=== PATIENT | female | born 1980 | race African-American/Black ===

== ENCOUNTER 2017-01-08 10:47 | Inpatient (IN) | payer BC, OTHER ==
[~2017-01-08] VITALS: Ht 167.6 cm; Wt 79.1 kg
[~2017-01-08 10:47] MED LIST: DENIES; PREN1TAB49
[2017-01-08 11:49] VITALS: Ht 167.6 cm; Wt 79.1 kg
[2017-01-08 11:52] VITALS: BP 112/60; PULSE 81; RESP 18
[2017-01-08 12:42] LABS: ADD UMIC YES; URINE BILIRUBIN (Dip) NEGATIVE (NEGATIVE); URINE BLOOD (Dip) 3+ (NEGATIVE); URINE COLOR LT. YELLOW (YELLOW); URINE GLUCOSE (Dip) NEGATIVE (NEGATIVE); URINE KETONES (Dip) NEGATIVE (NEGATIVE); URINE LEUKOCYTE ESTERASE (Dip) NEGATIVE (NEGATIVE); URINE NITRITE (Dip) NEGATIVE (NEGATIVE); URINE TOTAL PROTEIN (Dip) NEGATIVE (NEGATIVE); URINE UROBILINOGEN (Dip) 0.2 E.U./dL (0.1-1.0)
--- NOTE | 2017-01-08 12:58 | RADRPT ---
PROCEDURE: US OB biophysical profile. Ultrasound cervix CLINICAL INDICATION: decreased movements, labor TECHNIQUE: Multiple sonographic images of the pelvis were obtained. The images were reviewed on a PACS workstation. In addition transvaginal images of the cervix were obtained. COMPARISON: No prior studies are available for comparison. FINDINGS: There is a single viable intrauterine gestation. Cardiac activity is present with 126 beats per min redding. There is a vertex presentation. The placenta is anterior. There is no evidence of placental abruption. There is a normal amount of amniotic fluid with an JACK = 12.9 cm. The cervix is closed and measures 4.5 cm in length. Biophysical profile: movement 2/2 tone 2/2. breathing 2/2 JACK 2/2 Total 05/20 RPTAT: AA . IMPRESSION: Normal biophysical profile. Cervix is closed and measures 4.5 cm in length. . .Jonas Alejo MD, MD Date Time Electronically viewed and signed by .Jonas Alejo MD, MD on 01/08/2017 12:58 .S/
[2017-01-08 13:03] LABS: BACTERIA,URINE FEW; SQUAMOUS EPITHELIAL CELL,UR MODERATE; URINE RBCS 0-2 /HPF (0)
[2017-01-08 13:09] LABS: ADD SCAN DIFF NO
[2017-01-08 13:12] LABS: BASOPHILS % 0.3 % (0.0-2.0); EOSINOPHILS # 0.1 10^3/ul (0.0-0.5); EOSINOPHILS % 1.1 % (0.0-7.0); HEMATOCRIT 35.2 % (37.0-47.0); HEMOGLOBIN 11.5 g/dl (12.0-16.0); LYMPHOCYTES # 1.2 10^3/ul (0.8-2.9); LYMPHOCYTES % 16.2 % (15.0-51.0); MEAN CORPUSCULAR HEMOGLOBIN 30.5 pg (29.0-33.0); MEAN CORPUSCULAR HGB CONC 32.7 g/dl (32.0-37.0); MEAN CORPUSCULAR VOLUME 93.4 fl (82.0-101.0); MEAN PLATELET VOLUME 10.8 fl (7.4-10.4); MONOCYTE # 0.6 10^3/ul (0.3-0.9); MONOCYTES % 8.3 % (0.0-11.0); NEUTROPHIL # 5.5 10^3/ul (1.6-7.5); NEUTROPHILS % 73.7 % (39.0-77.0); PLATELET COUNT 162 10^3/UL (140-415); RED BLOOD COUNT 3.77 10^6/ul (4.20-5.40); RED CELL DISTRIBUTION WIDTH 14.4 % (11.5-14.5); WHITE BLOOD COUNT 7.4 10^3/ul (4.8-10.8)
[2017-01-08] MEDS: BETAMET NA PHOS/AC(6 MG/ML) 5ML INJ IM SCH (14:58)
[2017-01-08] MEDS: LACTATED RINGER'S 1,000 ML IV SCH ×2 (14:58→22:59)
--- NOTE | 2017-01-08 16:44 | RADRPT ---
PROCEDURE: US OB. CLINICAL INDICATION: Size and dates , vaginal bleeding TECHNIQUE: Multiple sonographic images of the pelvis and gravid uterus were obtained. The images were reviewed on a PACS workstation. COMPARISON: No prior studies are available for comparison. FINDINGS: There is a single viable intrauterine gestation. Cardiac activity is present with 144 beats per min leanne. There is a vertex presentation. The placenta is anterior. There is no evidence for an abruption or placenta previa. There is a normal amount of amniotic fluid with an JACK = 12.9 cm. Measurements were made in order to determine age. The results are as follows: BPD =8.0 cm HC =29.1 cm AC =27.9 cm FL =6.2 cm Estimated gestational age of approximately 32 weeks and 1 day based on ultrasound measurements. Clinical age: 29 weeks and 3 days. The estimated date of delivery is 03/04/17, based on ultrasound measurements. The EFW = 1895 g, >97%, based on LMP age. RPTAT: AA IMPRESSION: Single viable intrauterine gestation of approximately 32 weeks and 1 day based on ultrasound measur ements. Larger than clinical age by approximately 3 weeks. .Jonas Alejo MD, MD Date Time Electronically viewed and signed by .Jonas Alejo MD, on 01/08/2017 16:44 .S/
--- NOTE | 2017-01-08 17:55 | HP ---
Date/Time of Note Date/Time of Note DATE: 01/08/17 TIME: 17:47 OB - History Hx of Present Free Text/Dictation 36-year-old G 11 P5 with IUP at 29 weeks and 3 days with care in [facility] presented today with complaint of worsening of vaginal bleeding and passing large clots 2 days ago. Patient antepartum course was complicated by marginal placenta previa at the beginning of . She had spotting. She has continued to have brownish vaginal discharge throughout the until 2 days ago when she passed a large red blood clot to the size of the palm. She presented today to triage for further evaluation. She denies any uterine contractions, leakage of fluid or decreased movement or any abdominal pain. Patient reports that bleeding occurred when she was walking and she denied any pain prior to passing blood clots. She currently lives in [facility] however she decided to wait until she come to [facility] for evaluation since she will have delivery at [facility] she is currently under care of Dr. Rose. records reviewed. There was evidence of marginal previa earlier . She had a repeat ultrasound today that did not show evidence of placenta previa or abruption. Amniotic fluid index: 12.9 and cervical length 4.5 cm. She had a reactive NST and there is no contraction seen on the monitor. Chief Complaint: Vaginal bleeding, at 29 weeks and 3 days : 11 Para: 4 Spontaneous : 1 Therapeutic : 6 Care: Limited Care Past Family/Social History * Past Medical, Surgical, Family and Obstetric Histories reviewed from chart. OB Admission Exam Vital Signs Vital Signs Vital Signs Date Time Temp Pulse Resp B/P Pulse Ox O2 Delivery O2 Flow Rate FiO2 01/08/17 11:52 98.3 81 18 112/60 100 Room Air Physical Exam HEENT: WNL Heart: Rhythm Normal Lungs: Clear Abdomen: WNL Extremities: Normal Reflexes: Normal Cervical Dilatation: None (On the speculum examination there is brownish vaginal discharge. There is no evidence of active bleeding or there is no red blood in the vaginal vault. Cervix appears to be closed and long.) Effacement: 0% Station: -3 Membranes: Intact Heart Rate: 120's Accelerations: Accelerations Present Decelerations: No Decelerations Varibility: Absent Contractions on Admission: None Intensity: Mild Last 72 hours Lab Results CBC & BMP 01/08/17 12:48 OB Assessment/Plan Other Assessment: IUP at 29 weeks and 3 days History of marginal placenta previa Vaginal bleeding Repeat ultrasound showed resolution of placenta previa. Currently no clinical evidence of abruption. Ultrasound is unremarkable. Cannot rule out marginal separation of placenta. Patient denied having any recent intercourse. Patient will be admitted to antepartum for observation next I have discussed with the patient regarding receiving steriods, since risk of marginal separation of placenta, risk for earlier delivery, labor and placenta abruption cannot be completely ruled out. Patient agreed to this plan Plan: Expectant Management Other plan: Patient will be admitted to antepartum service We will start steroid Continue monitoring I do not see any uterine contractions. at this point does not need tocolysis If started having contractions would consider it Neonatology/ perinatology consultation Bedrest Expectant management MAXX GALLEGOS MD Jan 08, 2017 17:55
[2017-01-08] MEDS ORDERED: ZOLPIDEM 5 MG TAB PO PRN (21:30)
[2017-01-08] MEDS ORDERED: DIPHENHYDRAMINE 25 MG CAP PO ONE (21:30)
[2017-01-09] MEDS: LACTATED RINGER'S 1,000 ML IV SCH ×2 (08:36→13:56)
[2017-01-09] MEDS ORDERED: MULTIVIT/MIN/FOLATE/IRON/PREN TAB PO SCH (09:00)
[2017-01-09] MEDS ORDERED: FERROUS SULFATE (EC) 325 MG TAB PO SCH (09:00)
[2017-01-09] MEDS: BETAMET NA PHOS/AC(6 MG/ML) 5ML INJ IM SCH (14:40)
--- NOTE | 2017-01-09 15:04 | CONS ---
DATE OF ADMISSION: 01/08/2017 DATE OF CONSULTATION: 01/09/2017 TYPE TIME OF CONSULTATION: NICU consultation. HISTORY OF PRESENT ILLNESS: I was asked to perform a consultation for Tarik Rodriguez who was admitted to [facility] on 01/08/2017 at estimated gestational age of 29 and 3/7 weeks with onset of vaginal bleeding. She has been placed on betamethasone for augmentation of lung maturity. I spoke at length with mom regarding complications associated with delivery at this gestational age. Discussed survival data. Discussed morbidities including but not limited to risk of respiratory distress syndrome requiring chronic ventilator/oxygen use. Discussed risk other morbidities including, but not limited to, apnea of prematurity, sepsis, necrotizing enterocolitis, as well as possible intraventricular hemorrhage. Discussed risk of future neurodevelopmental delay including, but not limited to, attention deficit disorder, autism, cerebral palsy, as well as higher rates of learning disabilities in infants. Discussed provision of breast milk for prevention of of the above-mentioned morbidities. Thank you for allowing me to participate in the care of this patient. Should any further questions arise, please do not hesitate to contact me. Dictated By: GLENN LAKE MD, AM/ISABELLA Conf#: [id number] DID#: [id number] ROXANNE
--- NOTE | 2017-01-09 15:22 | CONS ---
DATE OF ADMISSION: 01/08/2017 DATE OF CONSULTATION: 01/09/2017 HISTORY OF PRESENT ILLNESS: The patient is a 36-year-old who presented yesterday evening with compl aint of some vaginal bleeding. Transvaginal cervical length was normal and there is no evidence of previa. Since then, she has had no vaginal bleeding. She was given betamethasone with the second d ose due this evening. RECOMMENDATIONS: If there is no evidence of vaginal bleeding overnight, please have the patient walk for about 2 rounds in the unit and if there is any evidence of heavy vaginal bleeding, she can be d ischarged home with bleeding precautions. Dictated By: JAVON WISEMAN/NTS Conf#: [id number] DID#: [id number]
--- NOTE | 2017-01-09 15:33 | QN ---
Documentation Comment doing well vss tracing category 1 no vaginal bleeding. d/c home today f/u in clinic RAYMON MANUEL MD Jan 09, 2017 15:33
--- NOTE | 2017-01-09 15:34 | PD.PPDC ---
WHITE WASHER Discharge Instruction Condition Patient Condition: Good Diet Diet: Resume Regular Diet Activity/Restrictions Activity: Normal Activity May Shower Restrictions: No Exercising No Lifting No Driving No Sexual Activity Nothing in the Vagina No [place] No Tampons, douche Wound/Drain Care Instructions Wound/Drain Care Instructions: Wash with soap and water Keep clean and dry Follow-up Follow-up with Physician: Week/Weeks Return to clinic for LINE TESTER Instructions: Fever greater than 101 Chills Worsening abdominal pain Excessive Vaginal Bleeding More than 2 pads per hour Unable to tolerate diet OB Instructions: Breast Tenderness Depression Blurried Vision Headache Surgical Instructions: Incisional Drainage Incisional Redness RAYMON MANUEL MD Jan 09, 2017 15:34
== END 2017-01-09 18:00 | disposition home or self-care (01) | DRG 782 ==
LOC: OBT 10:47 → L-D 10:48 → OBT 14:00 → OBG 14:00
PROVIDERS: ADMIT Obstetrics & Gynecology; ATTEND Obstetrics & Gynecology
DX: O46.93 Antepartum hemorrhage, unspecified, third trimester (principal); O09.523 Supervision of elderly multigravida, third trimester; Z3A.29 29 weeks gestation of pregnancy
CPT/HCPCS: 36415; 76815; 76817; 76818; 81001; 81003; 85025; 86850; 86900; 86901; G0463; J0702; J7120

== ENCOUNTER 2017-02-16 05:05 | Outpatient (CLI) | payer OTHER ==
[~2017-02-16] VITALS: Ht 167.6 cm; Wt 80.4 kg
[~2017-02-16 05:05] MED LIST changes: -DENIES
[2017-02-16 05:28] VITALS: Ht 167.6 cm; Wt 80.4 kg
[2017-02-16 05:29] VITALS: BP 111/62; PULSE 79; RESP 18
[2017-02-16] MEDS ORDERED: TERBUTALINE 1 MG/ML INJ SC ONE (06:30)
[2017-02-16] MEDS ORDERED: TERBUTALINE 1 MG/ML INJ SC PRN (07:00)
[2017-02-16 07:41] LABS: ADD UMIC YES; URINE BILIRUBIN (Dip) NEGATIVE (NEGATIVE); URINE BLOOD (Dip) 3+ (NEGATIVE); URINE COLOR LT. YELLOW (YELLOW); URINE GLUCOSE (Dip) NEGATIVE (NEGATIVE); URINE KETONES (Dip) NEGATIVE (NEGATIVE); URINE LEUKOCYTE ESTERASE (Dip) NEGATIVE (NEGATIVE); URINE NITRITE (Dip) NEGATIVE (NEGATIVE); URINE TOTAL PROTEIN (Dip) NEGATIVE (NEGATIVE); URINE UROBILINOGEN (Dip) 0.2 E.U./dL (0.1-1.0)
--- NOTE | 2017-02-16 08:17 | TRIAGE ---
OB Triage Datetime Report Generated by CPN: 02/16/2017 08:16 Datetime: 02/16/2017 08:09 Pattern: Normal: <= 5 Contractions in 10 Minutes Contraction Comments: no uc Heart Rate FHR Baseline Rate: 145 Monitor Mode: External US Variability: Moderate 6-25 bpm Accelerations: 15X15 Decelerations: None Category: Category I Pain Presence: None/Denies Pain Type: N/A Vaginal Bleeding: Scant Datetime: 02/16/2017 07:00 Stage of : OB Triage Labor Evaluation Frequency: 2-8 Monitor Mode: External Duration (sec)2399: 50-90 Quality: Moderate Pattern: Normal: <= 5 Contractions in [address] [facility]: Relaxed Heart Rate FHR Baseline Rate: 140 Monitor Mode: External US Variability: Moderate 6-25 bpm Accelerations: 15X15 Decelerations: None Category: Category I Pain Presence: None/Denies Datetime: 02/16/2017 06:10 Vaginal Exam Dilatation (cms): 0.0 Effacement (%): 0 Station: -4 Exam By: AURE Vaginal Bleeding: Scant Cervix, Consistency: Moderate Cervix, Position: Posterior Datetime: 02/16/2017 06:00 Stage of : OB Triage Temperature Route: Oral Labor Evaluation Frequency: 1-12 Monitor Mode: External Duration (sec)2399: 60-180 Quality: Moderate Pattern: Normal: <= 5 Contractions in [address] [facility]: Relaxed Heart Rate FHR Baseline Rate: 135 Monitor Mode: External US Variability: Moderate 6-25 bpm Accelerations: 15X15 Decelerations: None Category: Category I Pain Presence: None/Denies Datetime: 02/16/2017 05:26 Assessment Type: Triage Maternal Assessment Level of Consciousness: Fully Conscious DTR's/Clonus: DTRs 2+; No Clonus Headache: Denies Blurred Vision: No Respiratory Effort: Unlabored; Regular Rhythm; Equal Expansion Breath Sounds, Left: Clear and Equal Breath Sounds, Right: Clear and Equal Nausea/Vomiting: Denies RUQ Epigastric Pain: Denies Lower Extremities Edema: None Degree: None Facial Edema: None Fall Risk Assessment History of Falling: (0) No Secondary Diagnosis: (0) No Ambulatory Aid: (0) Bedrest/Nurse Assist IV Therapy: (0) No Gait: (0) Normal/Bedrest/Immobile Mental Status: (0) Oriented to Own Ability Fall Score: 0 Fall Risk Score Definition: No Risk: No action required Datetime: 02/16/2017 05:21 Time of Arrival: 02/16/2017 05:03 EGA: 35.0 Arrived By: Wheelchair Arrived From: Home Chief Complaint: BLEDING X DAYS DARK BROWM RED BLEEDING TODAY SINCE 829 Movement: Present Contractions: Occasional Time Contractions Began: 02/16/2017 05:00 Rupture of Membranes: Denies Recent Sexual Intercouse: Denies Additional Patient Complaints: PER PT. ONE PANTILINER WAS SOAKED Time Provider Notified: 02/16/2017 06:05 Provider Notified: SWEETIE Initial Plan: EFM, ASSESSMENT, CALL MD FOR ORDERS Datetime: 01/09/2017 17:39 Monitor Mode: EATING HER DINNER , ON THE WAY TO PICK HER UP Datetime: 01/09/2017 17:00 Labor Evaluation Frequency: 0 Monitor Mode: External Resting Tone [facility]: Relaxed Heart Rate FHR Baseline Rate: 140 Monitor Mode: External US FHR Baseline Changes: No Baseline Change Variability: Moderate 6-25 bpm Accelerations: 15X15 Decelerations: None Category: Category I Datetime: 01/09/2017 16:48 Stage of : Antepartum Temperature Route: Oral Pain Presence: None/Denies Pain Goal: 0 Datetime: 01/09/2017 16:46 Labor Evaluation Frequency: 0 Monitor Mode: External Resting Tone [facility]: Relaxed Heart Rate FHR Baseline Rate: 140 Monitor Mode: External US FHR Baseline Changes: No Baseline Change Variability: Moderate 6-25 bpm Accelerations: 15X15 Decelerations: None Category: Category I Datetime: 01/09/2017 16:00 Monitor Mode: External Resting Tone [facility]: Relaxed Heart Rate FHR Baseline Rate: 140 Monitor Mode: External US FHR Baseline Changes: No Baseline Change Variability: Moderate 6-25 bpm Accelerations: 15X15 Decelerations: None Category: Category I Datetime: 01/09/2017 15:00 Labor Evaluation Frequency: 0 Monitor Mode: External Resting Tone [facility]: Relaxed Heart Rate FHR Baseline Rate: 140 Monitor Mode: External US FHR Baseline Changes: No Baseline Change Variability: Moderate 6-25 bpm Accelerations: 15X15 Decelerations: None Category: Category I Datetime: 01/09/2017 13:53 Labor Evaluation Frequency: 0 Monitor Mode: External Resting Tone [facility]: Relaxed Heart Rate FHR Baseline Rate: 140 Monitor Mode: External US FHR Baseline Changes: No Baseline Change Variability: Moderate 6-25 bpm Accelerations: 10X10 Decelerations: None Category: Category I Datetime: 01/09/2017 12:53 Labor Evaluation Frequency: 0 Monitor Mode: External Resting Tone [facility]: Relaxed Heart Rate FHR Baseline Rate: 140 Monitor Mode: External US FHR Baseline Changes: No Baseline Change Variability: Moderate 6-25 bpm Accelerations: 10X10 Decelerations: None Category: Category I Datetime: 01/09/2017 12:47 Stage of : Antepartum Datetime: 01/09/2017 12:00 Labor Evaluation Frequency: 0 Monitor Mode: External Resting Tone [facility]: Relaxed Heart Rate FHR Baseline Rate: 140 Monitor Mode: External US FHR Baseline Changes: No Baseline Change Variability: Moderate 6-25 bpm Accelerations: 10X10 Decelerations: None Category: Category I Datetime: 01/09/2017 11:56 Stage of : Antepartum Datetime: 01/09/2017 11:36 Stage of : Antepartum Temperature Route: Oral Pain Assessment Pain Scale: 3 Pain Presence: Chronic Pain Location: Back Pain Goal: 0 Pain Relief Measures: Comfort Measures Datetime: 01/09/2017 11:30 Stage of : Antepartum Datetime: 01/09/2017 10:45 Labor Evaluation Frequency: 0 Monitor Mode: External Pattern: Normal: <= 5 Contractions in 10 Minutes Heart Rate FHR Baseline Rate: 145 Monitor Mode: External US FHR Baseline Changes: No Baseline Change Variability: Moderate 6-25 bpm Accelerations: 10X10 Decelerations: None Category: Category I Datetime: 01/09/2017 09:30 Stage of : Antepartum Labor Evaluation Frequency: x4/hr Monitor Mode: External Quality: Mild Heart Rate FHR Baseline Rate: 140 Monitor Mode: External US FHR Baseline Changes: No Baseline Change Variability: Moderate 6-25 bpm Accelerations: 15X15 Decelerations: Variable (Annotations: x2) Category: Category I Datetime: 01/09/2017 08:50 Labor Evaluation Frequency: 0 Monitor Mode: External Pattern: Normal: <= 5 Contractions in 10 Minutes Heart Rate FHR Baseline Rate: 140 Monitor Mode: External US FHR Baseline Changes: No Baseline Change Variability: Moderate 6-25 bpm Accelerations: 15X15 Decelerations: None Category: Category I Datetime: 01/09/2017 08:45 Assessment Type: Ongoing Assessment Maternal Assessment Level of Consciousness: Fully Conscious DTR's/Clonus: DTRs 2+; No Clonus Headache: Denies Blurred Vision: No Respiratory Effort: Unlabored; Regular Rhythm; Equal Expansion Breath Sounds, Left: Clear and Equal Breath Sounds, Right: Clear and Equal Nausea/Vomiting: Denies RUQ Epigastric Pain: Denies Lower Extremities Edema: None Degree: None Upper Extremities Edema: None Degree: None Facial Edema: None Fall Risk Assessment History of Falling: (0) No Secondary Diagnosis: (0) No Ambulatory Aid: (0) Bedrest/Nurse Assist IV Therapy: (20) Yes Gait: (0) Normal/Bedrest/Immobile Mental Status: (0) Oriented to Own Ability Fall Score: 20 Fall Risk Score Definition: No Risk: No action required Datetime: 01/09/2017 07:00 Labor Evaluation Frequency: x1 Monitor Mode: External Duration (sec)2399: [address] [facility]: Relaxed Heart Rate FHR Baseline Rate: 135 Monitor Mode: External US Variability: Moderate 6-25 bpm Accelerations: 15X15 Decelerations: Variable Datetime: 01/09/2017 06:44 Monitor Mode: Palpation Pain Assessment Pain Scale: 0 Pain Presence: None/Denies Pain Type: N/A Datetime: 01/09/2017 06:33 Pain Assessment Comments: unable to assess, pt asleep Datetime: 01/09/2017 06:30 Labor Evaluation Frequency: no contractions noted at this time Monitor Mode: External Resting Tone [facility]: Relaxed Heart Rate FHR Baseline Rate: 135 Monitor Mode: External US Variability: Moderate 6-25 bpm Accelerations: 15X15 Datetime: 01/09/2017 05:30 Labor Evaluation Frequency: none noted at this time Monitor Mode: External Resting T[facility]: Relaxed Heart Rate FHR Baseline Rate: 135 Monitor Mode: External US Variability: Moderate 6-25 bpm Accelerations: 15X15 Datetime: 01/09/2017 04:30 Labor Evaluation Frequency: NONE NOTED AT THIS TIME Monitor Mode: External Resting Tone [facility]: Relaxed Heart Rate FHR Baseline Rate: 145 Monitor Mode: External US Variability: Moderate 6-25 bpm Accelerations: 15X15 Datetime: 01/09/2017 04:17 Pain Assessment Comments: UNABLE TO ASSESS, PT ASLEEP Datetime: 01/09/2017 03:30 Labor Evaluation Frequency: none noted at this time Monitor Mode: External Resting Tone [facility]: Relaxed Heart Rate FHR Baseline Rate: 140 Monitor Mode: External US Variability: Moderate 6-25 bpm Accelerations: 15X15 Decelerations: None Category: Category I Datetime: 01/09/2017 02:59 Temperature Route: Oral Monitor Mode: Palpation Contraction Comments: no contractions palpated at this time Pain Assessment Pain Scale: 0 Pain Presence: None/Denies Pain Type: N/A Datetime: 01/09/2017 02:41 Stage of : Antepartum Contraction Comments: NO CONTRACTIONS PALPATED AT THIS TIME. ABDOMEN SOFT ON PALPATION Pain Assessment Pain Scale: 0 Pain Presence: None/Denies Pain Type: N/A Datetime: 01/09/2017 02:30 Labor Evaluation Frequency: NONE NOTED AT THIS TIME Monitor Mode: External Resting Tone [facility]: Relaxed Heart Rate FHR Baseline Rate: 140 Monitor Mode: External US Variability: Minimal - Undetectable to <=5 bpm Accelerations: 15X15 Datetime: 01/09/2017 01:30 Labor Evaluation Frequency: none noted at this time Monitor Mode: External Heart Rate FHR Baseline Rate: 145 Monitor Mode: External US Variability: Moderate 6-25 bpm Accelerations: 15X15 Decelerations: None Category: Category I Datetime: 01/09/2017 01:16 Pain Assessment Comments: unable to assess, pt asleep Datetime: 01/09/2017 00:19 Labor Evaluation Frequency: none noted at this time Monitor Mode: External Resting Tone [facility]: Relaxed Heart Rate FHR Baseline Rate: 145 Monitor Mode: External US Variability: Moderate 6-25 bpm Accelerations: 15X15 Datetime: 01/08/2017 23:38 Stage of : Antepartum Temperature Route: Oral Datetime: 01/08/2017 23:36 Monitor Mode: Palpation Contraction Comments: no contractions palpated at this time. abdomen soft on palpation Datetime: 01/08/2017 23:30 Labor Evaluation Frequency: NONE NOTED AT THIS TIME Monitor Mode: External Resting Tone [facility]: Relaxed Heart Rate FHR Baseline Rate: 135 Variability: Moderate 6-25 bpm Accelerations: 15X15 Comments: LOSS OF FHT PERIODICALLY Datetime: 01/08/2017 23:15 Monitor Mode: Palpation Contraction Comments: no contractions palpated, abdomen soft on palpation Monitor Mode: External US Pain Assessment Pain Scale: 0 Pain Presence: None/Denies Pain Type: N/A Datetime: 01/08/2017 22:30 Labor Evaluation Frequency: none noted at this time Monitor Mode: External Resting T[facility]: Relaxed Heart Rate FHR Baseline Rate: 135 Monitor Mode: External US Variability: Moderate 6-25 bpm Accelerations: 15X15 Decelerations: None Category: Category I Datetime: 01/08/2017 21:42 Pain Assessment Pain Scale: 0 Pain Presence: None/Denies Pain Type: N/A Datetime: 01/08/2017 21:30 Labor Evaluation Frequency: NONE NOTED AT THIS TIME Monitor Mode: External Resting Tone [facility]: Relaxed Heart Rate FHR Baseline Rate: 135 Variability: Moderate 6-25 bpm Accelerations: 15X15 Decelerations: None Category: Category I Datetime: 01/08/2017 20:30 Labor Evaluation Frequency: NONE NOTED AT THIS TIME Monitor Mode: External Resting Tone [facility]: Relaxed Heart Rate FHR Baseline Rate: 135 Monitor Mode: External US Variability: Moderate 6-25 bpm Accelerations: 15X15 Decelerations: None Category: Category I Datetime: 01/08/2017 19:51 Monitor Mode: Palpation Quality: Mild (Annotations: ABDOMEN SOFT ON PALPATION, NO CONTRACTIONS PALPATED) Monitor Mode: External US Datetime: 01/08/2017 19:41 Stage of : Antepartum Assessment Type: Ongoing Assessment Maternal Assessment Level of Consciousness: Fully Conscious DTR's/Clonus: DTRs 2+; No Clonus Headache: Denies Blurred Vision: No Respiratory Effort: Unlabored; Regular Rhythm; Equal Expansion Breath Sounds, Left: Clear and Equal Breath Sounds, Right: Clear and Equal Nausea/Vomiting: Denies RUQ Epigastric Pain: Denies Lower Extremities Edema: None Degree: None Upper Extremities Edema: None Degree: None Facial Edema: None Temperature Route: Oral Fall Risk Assessment History of Falling: (0) No Secondary Diagnosis: (0) No Ambulatory Aid: (0) Bedrest/Nurse Assist IV Therapy: (20) Yes Gait: (0) Normal/Bedrest/Immobile Mental Status: (0) Oriented to Own Ability Fall Score: 20 Fall Risk Score Definition: No Risk: No action required Labor Evaluation Frequency: NONE NOTED AT THIS TIME Monitor Mode: External Resting Tone [facility]: Relaxed Heart Rate FHR Baseline Rate: 135 (Annotations: LOSS OF CONTACT PERIODICALLY D/T MATERNAL POSITIONING AND FET AL ACTIVITY ) Monitor Mode: External US Variability: Moderate 6-25 bpm Accelerations: 15X15 Decelerations: None Category: Category I Pain Assessment Pain Scale: 0 Pain Presence: None/Denies Pain Type: N/A Datetime: 01/08/2017 18:38 Stage of : Antepartum Maternal Assessment Level of Consciousness: Fully Conscious Headache: Denies Blurred Vision: No Respiratory Effort: Unlabored Nausea/Vomiting: Denies RUQ Epigastric Pain: Denies Labor Evaluation Frequency: 0/hr Monitor Mode: External Heart Rate FHR Baseline Rate: 145 Monitor Mode: External US Variability: Moderate 6-25 bpm Accelerations: 10X10 Decelerations: None Pain Assessment Pain Scale: 0 Pain Presence: None/Denies Membrane Status: Intact Vaginal Bleeding: not at this time Datetime: 01/08/2017 18:08 Maternal Assessment Level of Consciousness: Fully Conscious Headache: Denies Blurred Vision: No Respiratory Effort: Unlabored Nausea/Vomiting: Denies Pain Presence: None/Denies Datetime: 01/08/2017 17:26 Stage of : Antepartum Maternal Assessment Level of Consciousness: Fully Conscious Headache: Denies Nausea/Vomiting: Denies RUQ Epigastric Pain: Denies Labor Evaluation Frequency: 0/hr Monitor Mode: External Heart Rate FHR Baseline Rate: 145 Monitor Mode: External US Variability: Moderate 6-25 bpm Accelerations: 10X10 Decelerations: None Comments: ega 29.3 Pain Assessment Pain Scale: 0 Pain Presence: None/Denies Membrane Status: Intact Vaginal Bleeding: not at this time Datetime: 01/08/2017 15:51 Heart Rate FHR Baseline Rate: 145 Variability: Moderate 6-25 bpm Accelerations: 10X10 Decelerations: None Comments: ega 29.3 Datetime: 01/08/2017 15:46 Assessment Type: Admission Assessment Vaginal Bleeding: Small (Annotations: sterile spec done by dr. chance in triage and noted brownis h d/ci n vagina. pt. states she passed a clot about the size "of a big orange" x2 days ago. pt. hx. of bleeding and brownish d/c throughout ) Maternal Assessment Level of Consciousness: Fully Conscious DTR's/Clonus: DTRs 2+; No Clonus Headache: Denies Blurred Vision: No Respiratory Effort: Unlabored; Regular Rhythm; Equal Expansion Breath Sounds, Left: Clear and Equal Breath Sounds, Right: Clear and Equal Nausea/Vomiting: Denies RUQ Epigastric Pain: Denies Lower Extremities Edema: None Upper Extremities Edema: None Facial Edema: None Fall Risk Assessment History of Falling: (0) No Secondary Diagnosis: (0) No Ambulatory Aid: (0) Bedrest/Nurse Assist IV Therapy: (20) Yes Gait: (0) Normal/Bedrest/Immobile Mental Status: (0) Oriented to Own Ability Fall Score: 20 Fall Risk Score Definition: No Risk: No action required Pain Assessment Pain Scale: 0 Pain Presence: None/Denies Pain Type: N/A Membrane Status: Intact Datetime: 01/08/2017 13:29 Labor Evaluation Frequency: 0 Monitor Mode: External Duration (sec)2399: [address] [facility]: Relaxed Heart Rate FHR Baseline Rate: 125 Monitor Mode: External US FHR Baseline Changes: No Baseline Change Variability: Moderate 6-25 bpm Accelerations: 15X15 Decelerations: None Category: Category I Datetime: 01/08/2017 12:15 Labor Evaluation Frequency: 0 Monitor Mode: External Duration (sec)2399: [address] [facility]: Relaxed Heart Rate FHR Baseline Rate: 135 Monitor Mode: External US FHR Baseline Changes: No Baseline Change Variability: Moderate 6-25 bpm Accelerations: 15X15 Decelerations: None Category: Category I Membrane Status: Intact Datetime: 01/08/2017 11:47 Labor Evaluation Frequency: 0 Monitor Mode: External Duration (sec)2399: [address] [facility]: Relaxed Heart Rate FHR Baseline Rate: 135 Monitor Mode: External US FHR Baseline Changes: No Baseline Change Variability: Moderate 6-25 bpm Accelerations: 15X15 Decelerations: None Category: Category I Datetime: 01/08/2017 11:39 Time of Arrival: 01/08/2017 15:10 EGA: 29.3 Arrived By: Wheelchair Arrived From: Other Unit in Hospital Datetime: 01/08/2017 11:21 Labor Evaluation Frequency: 0 Monitor Mode: External Duration (sec)2399: [address] [facility]: Relaxed Heart Rate FHR Baseline Rate: 145 Monitor Mode: External US FHR Baseline Changes: No Baseline Change Variability: Moderate 6-25 bpm Accelerations: 15X15 Decelerations: None Category: Category I Datetime: 01/08/2017 11:11 Time of Arrival: 01/08/2017 10:31 EGA: 38.1 Arrived By: Ambulatory Arrived From: Home Chief Complaint: R/O PLACENTA PREVIA Movement: Present Contractions: Denies/Absent Rupture of Membranes: Denies Vaginal Bleeding: Small Vaginal Discharge: Denies Recent Sexual Intercouse: Denies Abdominal Trauma: Not Applicable Patient Complaints: Cramping; Back Pain Time Provider Notified: 01/08/2017 11:15 Provider Notified: MAR Datetime: 01/08/2017 11:07 Stage of : OB Triage Maternal Assessment Level of Consciousness: Fully Conscious DTR's/Clonus: DTRs 2+; No Clonus Headache: Denies Blurred Vision: No Respiratory Effort: Unlabored Breath Sounds, Left: Clear and Equal Breath Sounds, Right: Clear and Equal Nausea/Vomiting: Denies RUQ Epigastric Pain: Denies Facial Edema: None Labor Evaluation Frequency: 0 Monitor Mode: External Duration (sec)2399: [address] [facility]: Relaxed Heart Rate FHR Baseline Rate: 135 Monitor Mode: External US FHR Baseline Changes: No Baseline Change Variability: Moderate 6-25 bpm Accelerations: 15X15 Decelerations: None Category: Category I Pain Assessment Pain Scale: 3 Pain Presence: Intermittent Pain Type: Contraction Pain Location: Abdomen Pain Goal: 10 Pain Relief Measures: Comfort Measures Pain Assessment Comments: LIGAMENT PAIN Membrane Status: Intact
--- NOTE | 2017-02-16 17:36 | QN ---
Documentation Comment iup 35 weeks co of spottin vss exam wnl cat I tracing us wnl ua neg a/p iup 35 weeks false labor dc home ISABELLE ARMENDARIZ MD February 16, 2017 17:36
== END 2017-02-16 08:29 | disposition home or self-care (01) ==
LOC: OBT 05:05 → L-D 05:05 → OBT 08:29
PROVIDERS: ATTEND Obstetrics & Gynecology
DX: O47.03 False labor before 37 completed weeks of gestation, third trimester (principal); O26.853 Spotting complicating pregnancy, third trimester; Z3A.35 35 weeks gestation of pregnancy
CPT/HCPCS: 81001; 96372; J3105; Z7500; 81003; G0463

== ENCOUNTER 2017-03-03 13:20 | Inpatient (IN) | payer OTHER ==
[~2017-03-03] VITALS: Ht 170.2 cm; Wt 82.0 kg
[2017-03-03 13:34] VITALS: RESP 19; Ht 170.2 cm; Wt 82.0 kg
[2017-03-03] MEDS ORDERED: LACTATED RINGER'S 1,000 ML IV SCH (14:03)
[2017-03-03] MEDS ORDERED: LACTATED RINGER'S 1,000 ML IV PRN (14:03)
[2017-03-03 14:09] LABS: ADD SCAN DIFF NO
[2017-03-03 14:11] LABS: BASOPHILS % 0.1 % (0.0-2.0); EOSINOPHILS # 0.1 10^3/ul (0.0-0.5); EOSINOPHILS % 0.9 % (0.0-7.0); HEMATOCRIT 36.4 % (37.0-47.0); HEMOGLOBIN 12.2 g/dl (12.0-16.0); LYMPHOCYTES # 1.1 10^3/ul (0.8-2.9); LYMPHOCYTES % 13.7 % (15.0-51.0); MEAN CORPUSCULAR HEMOGLOBIN 30.2 pg (29.0-33.0); MEAN CORPUSCULAR HGB CONC 33.5 g/dl (32.0-37.0); MEAN CORPUSCULAR VOLUME 90.1 fl (82.0-101.0); MEAN PLATELET VOLUME 10.8 fl (7.4-10.4); MONOCYTE # 0.8 10^3/ul (0.3-0.9); MONOCYTES % 9.7 % (0.0-11.0); NEUTROPHIL # 5.8 10^3/ul (1.6-7.5); PLATELET COUNT 148 10^3/UL (140-415); RED BLOOD COUNT 4.04 10^6/ul (4.20-5.40); RED CELL DISTRIBUTION WIDTH 13.8 % (11.5-14.5); WHITE BLOOD COUNT 7.7 10^3/ul (4.8-10.8)
--- NOTE | 2017-03-03 14:24 | RADRPT ---
PROCEDURE: US OB. CLINICAL INDICATION: Preoperative , pain TECHNIQUE: Transabdominal views of the pelvis are available for review. COMPARISON: No prior studies are available for comparison. FINDINGS: There is a single intrauterine gestation in a vertex position. The heart rate is noted at 135 bpm. The placenta is anterior. RPTAT: AA IMPRESSION: presentation is vertex. .Jonas Alejo MD, MD Date Time Electronically viewed and signed by .Jonas Alejo MD, on 03/03/2017 14:23 .S/
[2017-03-03 14:26] LABS: INR 0.97; PROTIME 12.9 Sec (12.2-14.2)
[2017-03-03 14:27] LABS: PARTIAL THROMBOPLASTIN TIME 26.4 Sec (25.0-35.0)
[2017-03-03] MEDS ORDERED: AMPICILLIN 2 GM/NS (PMX) 100 ML IV ONE (14:30)
[2017-03-03] MEDS ORDERED: MISOPROSTOL 200 MCG TAB PR PRN ×2 (14:30→21:30)
[2017-03-03] MEDS ORDERED: OXYTOCIN 30 UNITS/LR 500 ML IV PRN ×2 (14:30→21:30)
[2017-03-03] MEDS ORDERED: METHYLERGONOVINE 0.2 MG INJ IM PRN ×2 (14:30→21:30)
[2017-03-03] MEDS ORDERED: LIDOCAINE 1% (MPF) 30 ML INJ INJ PRN (14:30)
[2017-03-03] MEDS ORDERED: CARBOPROST 250 MCG INJ IM PRN ×2 (14:30→21:30)
[2017-03-03] MEDS ORDERED: OXYTOCIN 30 UNITS/LR 500 ML IV SCH ×3 (15:00→20:00)
[2017-03-03] MEDS ORDERED: DIPHENHYDRAMINE 50 MG INJ IV PRN ×2 (17:00→21:30)
[2017-03-03] MEDS ORDERED: NALOXONE (0.4 MG/ML) INJ IV PRN (17:00)
[2017-03-03] MEDS ORDERED: ONDANSETRON 4 MG INJ IV PRN ×2 (17:00→21:30)
[2017-03-03] MEDS ORDERED: FENTAnyl 2MCG/ML-ROPIV 0.2% 100 ML BAG EPI SCH (17:00)
[2017-03-03] MEDS ORDERED: AMPICILLIN 1 GM/NS (PMX) 50 ML IV SCH (18:00)
--- NOTE | 2017-03-03 21:26 | HP ---
Date/Time of Note Date/Time of Note DATE: 03/03/17 TIME: 21:21 OB - History Hx of Present Free Text/Dictation 36 Year-old with SIUP at 37 1/7 weeks presents with a chief complaint of LOF since 12:00 today. She has been receiving her care with Dr. Rose. She states good movement. She denies nausea, vomiting, shortness of breath, chest pain, and abdominal pain between contractions, headache, visual changes, vaginal bleeding. Care: Good Care Ultrasounds: Normal mid trimester US Obstetrical Complications: None Medical Complications: Musculoskeletal Past Family/Social History * Past Medical, Surgical, Family and Obstetric Histories reviewed from chart. Blood Type: B+ Rubella: immune RPR/VDRL: Negative GBS Status: Unknown HBsAG: Negative OB Admission Exam Vital Signs Vital Signs Vital Signs Date Time Temp Pulse Resp B/P Pulse Ox O2 Delivery O2 Flow Rate FiO2 03/03/17 13:34 19 99 Room Air Physical Exam HEENT: WNL Heart: Rhythm Normal Lungs: Clear Abdomen: WNL Extremities: Normal Cervical Dilatation: 4cm Effacement: 50% Station: -3 Membranes: Ruptured Amniotic Fluid: Clear Heart Rate: 130's Accelerations: Accelerations Present Decelerations: No Decelerations Varibility: Moderate Contractions on Admission: < 5 Minutes Apart Intensity: Moderate Last 72 hours Lab Results CBC & BMP 03/03/17 14:00 OB Assessment/Plan Other plan: 36 Year-old with SIUP at 37 1/7 with SROM in labor. - FHR: No sign of metabolic acidosis- Category I - Continious EFM, toco - CBC, blood type and screen - Analgesia options with R/B/A discussed in detail with patient - Epidural per patient request - Please see the orders - B+/Rubella: Immune/GBS unknow, ampicillin for GBS prophylaxis Admission, procedures, expectations, risks and possible complications have been discussed in detail with the patient. Risk of vaginal delivery including but not limited to bleeding, infection, cervical laceration, placental retention, injury to fetus, blood transfusion, blood transfusion related infection, risk of anesthesia, adhesion, cervical laceration, episiotomy/laceration, possible delivery with risk of bleeding, infection, injury to other organs ( bowel, bladder, ureter, vessels, nerves), injury to fetus, blood transfusion, blood transfusion related infection, risk of anesthesia, scar and hernia formation, needs for future , removal of uterus or any other indicated surgery discussed with the patient. She expressed understanding and repeats the risks. All of her questions were answered; all appropriate consents will be signed. PHYSICIAN'S VERIFICATION OF INFORMED CONSENT: The patient was counseled regarding the procedure, its indications, risks, potential complications and alternatives and any questions were answered. Consent was obtained. PLANNED PROCEDURE/TREATMENT: Vaginal delivery with possible vacuum/forceps delivery episiotomy, repair of laceration possible delivery PHYSICIAN'S VERIFICATION OF INFORMED CONSENT FOR BLOOD TRANSFUSION: There is a reasonable possibility that blood transfusion will be necessary as a result of the patient's procedure. I have discussed the following with the patient/patient's legal representative personal service: An explanation of the benefits and risks of the transfusion of blood or blood products and the possible alternatives. Al questions have been answered to the patient's/patients legal representatives satisfaction. INFORMED CONSENT: The patient has been informed of: - The nature of the proposed care, treatment, services, medic- Potential benefits, risks or side effects, including potential problems related to recuperation. - The likelihood of achieving care treatment and service goals. - Reasonable alternatives to the proposed care, treatment and service. - The relevant risks, benefits and side effects related to alternatives, including the possible results of not receiving care, treatment and services. - When indicated, any limitations on the confidentiality of information learned from or about the patient. - If appropriate, the risks, benefits and alternatives of the drugs to be used for sedation/analgesia including moderate sedation. - If appropriate, patient has been provided information on the risks, benefits and alternatives to the transfusion of blood and/or blood products. RBIANNA MARTIN March 03, 2017 21:26
[2017-03-03] MEDS ORDERED: DEXTROSE 5%-LR 1,000 ML IV SCH (21:28)
[2017-03-03] MEDS ORDERED: LACTATED RINGER'S 1,000 ML IV* SCH (21:28)
--- NOTE | 2017-03-03 21:28 | LDN ---
Date/Time of Note Date/Time of Note DATE: 03/03/17 TIME: 21:26 Delivery Summary 36 Year-old with SIUP at 37 1/7 weeks delivered a male over intact perineum. : 9 Weight: 3055 gram (6 lbs 2 oz) Sex: male Time of delivery: 20: 39 Placenta Delivered: Spontaneously Meconium: none Episiotomy: No Estimated blood loss: 200 Sponge & Needle done & correct: Yes All needle counts correct: Yes Any foreign bodies felt in the: No Problems: Delivery Information Sex Sex: male Apgars 1 Minute: 9 5 Minute: 9 10 Minute: 10 Umbilical Cord Umbilical cord with: 3 Vessels Cord presentations: nuchal cord (x2) Cord Blood was obtained: Yes BRIANNA MARTIN March 03, 2017 21:28
[2017-03-03] MEDS ORDERED: ZOLPIDEM 5 MG TAB PO PRN (21:30)
[2017-03-03] MEDS ORDERED: BENZOCAINE 20% 56 ML SPRAY TOP PRN (21:30)
[2017-03-03] MEDS ORDERED: LANOLIN 7 GM TUBE TOP PRN (21:30)
[2017-03-03] MEDS ORDERED: SENNA/DOCUSATE NA (8.6MG/50MG) TAB PO PRN (21:30)
[2017-03-03] MEDS ORDERED: OXYCODONE/ASPIRIN (4.88/325) TAB PO PRN (21:30)
[2017-03-03] MEDS ORDERED: WITCH HAZEL/GLYCERIN PAD PR PRN (21:30)
[2017-03-03] MEDS ORDERED: DIBUCAINE 1% 30 GM OINT PR PRN (21:30)
[2017-03-03] MEDS ORDERED: ACETAMINOPHEN 325 MG TAB PO PRN (21:30)
[2017-03-03 23:15] VITALS: BP 131/79; PULSE 62; RESP 18
[2017-03-03] MEDS: IBUPROFEN 600 MG TAB PO SCH (23:48)
[2017-03-04 04:00] VITALS: BP 112/79; PULSE 68; RESP 18
[2017-03-04] MEDS: IBUPROFEN 600 MG TAB PO SCH ×4 (06:10→23:39)
[2017-03-04 08:15] VITALS: BP 118/78; PULSE 68; RESP 18
[2017-03-04 08:46] LABS: ADD SCAN DIFF NO
[2017-03-04 08:58] LABS: BASOPHILS % 0.2 % (0.0-2.0); EOSINOPHILS # 0.1 10^3/ul (0.0-0.5); EOSINOPHILS % 1.1 % (0.0-7.0); HEMATOCRIT 37.9 % (37.0-47.0); HEMOGLOBIN 12.3 g/dl (12.0-16.0); LYMPHOCYTES % 11.7 % (15.0-51.0); MEAN CORPUSCULAR HEMOGLOBIN 29.8 pg (29.0-33.0); MEAN CORPUSCULAR HGB CONC 32.5 g/dl (32.0-37.0); MEAN CORPUSCULAR VOLUME 91.8 fl (82.0-101.0); MEAN PLATELET VOLUME 11.3 fl (7.4-10.4); MONOCYTES % 11.1 % (0.0-11.0); NEUTROPHIL # 6.6 10^3/ul (1.6-7.5); NEUTROPHILS % 75.4 % (39.0-77.0); PLATELET COUNT 127 10^3/UL (140-415); RED BLOOD COUNT 4.13 10^6/ul (4.20-5.40); RED CELL DISTRIBUTION WIDTH 13.9 % (11.5-14.5); WHITE BLOOD COUNT 8.8 10^3/ul (4.8-10.8)
[2017-03-04 16:05] VITALS: BP 133/72; PULSE 64; RESP 16
[2017-03-04 20:00] VITALS: BP 120/64; RESP 20
[2017-03-04] MEDS ORDERED: DIPHENHYDRAMINE 50 MG CAP PO ONE (22:00)
[2017-03-05 02:20] VITALS: BP 120/64; RESP 20
[2017-03-05] MEDS: IBUPROFEN 600 MG TAB PO SCH ×2 (05:08→09:00)
[2017-03-05 08:00] VITALS: BP 137/77; PULSE 66; RESP 19
[2017-03-05] MEDS ORDERED: DIPHTH/TET/ACEL PERTUSS (ADULT) 0.5 ML VIAL IM* ONE (09:00)
[2017-03-05] MEDS ORDERED: MEASLES,MUMPS,RUBELLA VACCINE INJ SC* ONE (09:00)
--- NOTE | 2017-03-05 12:29 | PN ---
Date/Time of Note Date/Time of Note DATE: 03/05/17 TIME: 12:25 OB Subjective Subjective Subjective Does not breast-feed. Bottle feeding due to presence of displaced implants, does not have any desire to breast-feed. Vaginal bleeding decreased. Denies any complaints\denies any depressive symptoms. denies any dizziness, lightheadedness or any other symptoms. OB Objective Objective Objective General appearance: Alert and oriented 4 patient does not in acute distress. Abdomen: Soft, fundal height below the umbilicus. No fundal tenderness, no abdominal tenderness, Breasts: No evidence of engorgement. Extremities: No calf tenderness, no click no edema Hematology - 72 Hrs Test 03/03/17 14:00 03/04/17 08:07 White Blood Count 7.710^3/ul (4.8-10.8) 8.810^3/ul (4.8-10.8) Red Blood Count 4.0410^6/ul (4.20-5.40) L 4.1310^6/ul (4.20-5.40) L Hemoglobin 12.2g/dl (12.0-16.0) 12.3g/dl (12.0-16.0) Hematocrit 36.4% (37.0-47.0) L 37.9% (37.0-47.0) Mean Corpuscular Volume 90.1fl (82.0-101.0) 91.8fl (82.0-101.0) Mean Corpuscular Hemoglobin 30.2pg (29.0-33.0) 29.8pg (29.0-33.0) Mean Corpuscular Hemoglobin Concent 33.5g/dl (32.0-37.0) 32.5g/dl (32.0-37.0) Red Cell Distribution Width 13.8% (11.5-14.5) 13.9% (11.5-14.5) Platelet Count 43621^3/UL (140-415) 39510^3/UL (140-415) L Mean Platelet Volume 10.8fl (7.4-10.4) H 11.3fl (7.4-10.4) H Neutrophils % 75.0% (39.0-77.0) 75.4% (39.0-77.0) Lymphocytes % 13.7% (15.0-51.0) L 11.7% (15.0-51.0) L Monocytes % 9.7% (0.0-11.0) 11.1% (0.0-11.0) H Eosinophils % 0.9% (0.0-7.0) 1.1% (0.0-7.0) Basophils % 0.1% (0.0-2.0) 0.2% (0.0-2.0) Nucleated Red Blood Cells % 0.0/100WBC (0.0-0.0) 0.0/100WBC (0.0-0.0) Neutrophils # 5.810^3/ul (1.6-7.5) 6.610^3/ul (1.6-7.5) Lymphocytes # 1.110^3/ul (0.8-2.9) 1.010^3/ul (0.8-2.9) Monocytes # 0.810^3/ul (0.3-0.9) 1.010^3/ul (0.3-0.9) H Eosinophils # 0.110^3/ul (0.0-0.5) 0.110^3/ul (0.0-0.5) Basophils # 0.010^3/ul (0.0-0.1) 0.010^3/ul (0.0-0.1) Nucleated Red Blood Cells # 0.010^3/ul (0.0-0.0) 0.010^3/ul (0.0-0.0) OB Assessment/Plan Other Assessment: Status post day #2 Doing well Other plan: Desires to go home Discharge home today Follow-up with primary OB in 6 weeks recommended or sooner as needed any other complaints or symptoms MAXX GALLEGOS MD March 05, 2017 12:28
== END 2017-03-05 11:45 | disposition home or self-care (01) | DRG 775 ==
LOC: OBT 13:20 → L-D 13:21 → OBT 13:47 → L-D 13:53 → PP1 23:15
PROVIDERS: ADMIT Obstetrics & Gynecology; ATTEND Obstetrics & Gynecology
PROC: 10E0XZZ Delivery of Products of Conception, External Approach (ICD-10-PCS; principal; 2017-03-03)
DX: O69.81X0 Labor and delivery complicated by cord around neck, without compression, not applicable or unspecified (principal); O09.523 Supervision of elderly multigravida, third trimester; Z3A.37 37 weeks gestation of pregnancy; Z37.0 Single live birth
CPT/HCPCS: 62319; 76815; 85025; 85610; 85730; 86592; 86900; 86901; 87340; 88307; 90715; G0463; J0290; J1200; J2405; J2590; J3010; J7120; J7121

== ENCOUNTER 2019-03-01 04:27 | Inpatient (IN) | payer OTHER ==
[~2019-03-01] VITALS: Ht 167.6 cm; Wt 80.2 kg
[2019-03-01 04:37] VITALS: Ht 167.6 cm; Wt 80.2 kg
--- NOTE | 2019-03-01 04:57 | OPPN ---
Date/Time of Note Date/Time of Note DATE: 03/01/19 TIME: 04:55 Event Note [id number] PIV insertion left hand by anesthesia RN unable to. BERNA FINCH MD March 01, 2019 04:57
[2019-03-01] MEDS ORDERED: MAGNESIUM SULFATE 4 GM/100 ML 100 ML IV ONE (05:00)
[2019-03-01] MEDS ORDERED: MAGNESIUM SULFATE 4 GM/100 ML 100 ML ONE (05:00)
[2019-03-01] MEDS ORDERED: BETAMET NA PHOS/AC(6 MG/ML) 2 ML INJ SYG IM ONE (05:00)
[2019-03-01] MEDS ORDERED: LACTATED RINGER'S 1,000 ML IV SCH (05:00)
[2019-03-01] MEDS: MAGNESIUM SULFATE 20 GM/500 ML 500 ML IV SCH ×3 (05:44→23:26)
--- NOTE | 2019-03-01 07:17 | HP ---
Date/Time of Note Date/Time of Note DATE: 03/01/19 TIME: 07:13 OB - History Hx of Present Chief Complaint: vaginal bleeding Estimated Due Date: Apr 08, 2019 : 12 Para: 6 Spontaneous : 1 Therapeutic : 1 Care: Good Care Ultrasounds: Abnormal US findings Abnormal Ultrasound Findings: placenta previa Obstetrical Complications: Other (placenta previa) Medical Complications: None Past Family/Social History * Past Medical, Surgical, Family and Obstetric Histories reviewed from chart. GBS Status: Unknown OB Admission Exam Physical Exam HEENT: WNL Heart: Rhythm Normal Lungs: Clear, Equal Abdomen: WNL Extremities: Normal Reflexes: Normal Heart Rate: 120's Accelerations: Accelerations Present Decelerations: No Decelerations Varibility: Moderate Last 72 hours Lab Results CBC & BMP 03/01/19 05:16 Liver Function Test 03/01/19 05:16 Alanine Aminotransferase (ALT/SGPT) 12 L Albumin 3.2 L Alkaline Phosphatase 95 Aspartate Amino Transf (AST/SGOT) 20 Direct Bilirubin 0.00 Total Protein 6.0 L OB Assessment/Plan Reason for admission: labor, vaginal bleeding, other Other Assessment: placenta previa Plan: Other Other plan: Admit IV magnesium sulfate IM betamethasone Perinatology consult RAMYA NEAL MD March 01, 2019 07:17
--- NOTE | 2019-03-01 09:51 | TRIAGE ---
OB Triage Datetime Report Generated by CPN: 03/01/2019 09:51 Datetime: 03/01/2019 09:18 Labor Evaluation Frequency: 2/hr Monitor Mode: External Duration (sec)2399: 120 Quality: Moderate Resting Tone [place]: Relaxed Heart Rate FHR Baseline Rate: 130 Monitor Mode: External US FHR Baseline Changes: No Baseline Change Variability: Moderate 6-25 bpm Accelerations: 15X15 Decelerations: None Category: Category I Datetime: 03/01/2019 08:35 Labor Evaluation Frequency: q12-13 min Monitor Mode: External Duration (sec)2399: 90 Quality: Moderate Resting Tone [place]: Relaxed Heart Rate FHR Baseline Rate: 130 Monitor Mode: External US FHR Baseline Changes: No Baseline Change Variability: Moderate 6-25 bpm Accelerations: 15X15 Decelerations: None Category: Category I Pain Assessment Pain Scale: 8 Pain Type: Contraction Pain Goal: 0 Datetime: 03/01/2019 08:13 Assessment Type: Admission Assessment Maternal Assessment Level of Consciousness: Fully Conscious DTR's/Clonus: DTRs 2+; No Clonus Headache: Denies Blurred Vision: No Respiratory Effort: Unlabored; Regular Rhythm; Equal Expansion Breath Sounds, Left: Clear and Equal Breath Sounds, Right: Clear and Equal Nausea/Vomiting: Denies RUQ Epigastric Pain: Denies Facial Edema: None Fall Risk Assessment History of Falling: (0) No Secondary Diagnosis: (0) No Ambulatory Aid: (0) Bedrest/Nurse Assist IV Therapy: (20) Yes Gait: (0) Normal/Bedrest/Immobile Mental Status: (0) Oriented to Own Ability Fall Score: 20 Fall Risk Score Definition: No Risk: No action required Pain Assessment Pain Scale: 8 Pain Type: Contraction Pain Goal: 0 Datetime: 03/01/2019 07:09 Stage of : Antepartum Datetime: 03/01/2019 07:07 Stage of : Antepartum Datetime: 03/01/2019 07:00 Stage of : OB Triage Labor Evaluation Frequency: 5-7 Monitor Mode: Palpation Duration (sec)2399: 60-100 Resting Tone [place]: Relaxed Heart Rate FHR Baseline Rate: 130 Monitor Mode: External US Variability: Moderate 6-25 bpm Accelerations: 15X15 Decelerations: None Category: Category I Datetime: 03/01/2019 06:00 Stage of : OB Triage Labor Evaluation Frequency: 5-10 Monitor Mode: Palpation Duration (sec)2399: 60-120 Resting Tone [place]: Relaxed Heart Rate FHR Baseline Rate: 135 Monitor Mode: External US Variability: Moderate 6-25 bpm Accelerations: 15X15 Decelerations: None Category: Category I Pain Assessment Pain Scale: 5 Pain Presence: Intermittent Pain Type: Contraction Pain Location: Abdomen; Back Pain Relief Measures: Comfort Measures Datetime: 03/01/2019 04:59 Time of Arrival: 03/01/2019 04:20 EGA: 34.4 Arrived By: Wheelchair Arrived From: Home Chief Complaint: VAGINAL BLEEDING Movement: Present Contractions: Regular Rupture of Membranes: Denies Vaginal Bleeding: Heavy; Bright Red; Clots Vaginal Discharge: Present Abdominal Trauma: Not Applicable Patient Complaints: Contractions; Cramping; Other Time Provider Notified: 03/01/2019 04:26 Provider Notified: Initial Plan: CEFM, LABS, IV HYDRATION, US Datetime: 03/01/2019 04:57 Stage of : OB Triage Labor Evaluation Frequency: 7-8 Monitor Mode: Palpation Duration (sec)2399: 60-100 Resting Tone [place]: Relaxed Heart Rate FHR Baseline Rate: 135 Monitor Mode: External US Variability: Moderate 6-25 bpm Decelerations: None Pain Assessment Pain Scale: 5 Pain Presence: Intermittent Pain Type: Contraction Pain Location: Abdomen; Back Pain Relief Measures: Comfort Measures Datetime: 03/01/2019 04:27 Stage of : OB Triage Assessment Type: Triage Maternal Assessment Level of Consciousness: Fully Conscious DTR's/Clonus: DTRs 2+; No Clonus Headache: Denies Blurred Vision: No Respiratory Effort: Unlabored; Regular Rhythm; Equal Expansion Breath Sounds, Left: Clear and Equal Breath Sounds, Right: Clear and Equal Nausea/Vomiting: Denies RUQ Epigastric Pain: Denies Lower Extremities Edema: None Degree: None Upper Extremities Edema: None Degree: None Facial Edema: None Temperature Route: Oral Fall Risk Assessment History of Falling: (0) No Secondary Diagnosis: (0) No Ambulatory Aid: (0) Bedrest/Nurse Assist IV Therapy: (0) No Gait: (0) Normal/Bedrest/Immobile Mental Status: (0) Oriented to Own Ability Fall Score: 0 Fall Risk Score Definition: No Risk: No action required Datetime: 03/01/2019 04:26 Stage of : OB Triage Datetime: 03/01/2019 04:22 Stage of : OB Triage
[2019-03-01] MEDS: LACTATED RINGER'S 1,000 ML IV SCH (12:21)
--- NOTE | 2019-03-01 20:10 | CONS ---
Consultation Date/Type/Reason Admit Date/Time March 01, 2019 at 07:18 Date of Consultation: March 01, 2019 Type of Consult [facility] Reason for Consultation Requested by Dr. Bourgeois to addiction counselor mother regarding potential complications and outcome of delivery at 34 completed weeks. Mother is a 38 yo B+ [id number] with EDC 04/08. Uncomplicated until passage of bright red blood and clot early AM 03/01 and labor. Presented to L&D and treated with MgSO4 and Betamethasone X 1 dose. U/S demonstrated complete placenta previa; BPP 8/8. Mother continues to have spotting and intermittent contractions. Discussed with mother at bedside high survival of late births but potential requirement for respiratory support, although diminished with completion of steroids. Discussed feeding issues requiring partial gavage feedings, and inability to maintain body temperature as potential problems which would require NICU stay. Mother appeared to understand and asked appropriate questions. Assured mother of availability to answer further questions which may arise Date/Time of Note DATE: 03/01/19 TIME: 19:50 Past Medical History Home Meds No Active Prescriptions or Reported Meds Medications Current Medications Magnesium Sulfate 500 ml @ 50 mls/hr Q10H IV Last administered on 03/01/19at 15:10; Admin Dose 50 MLS/HR; Start 03/01/19 at 05:30 Betamethasone Acet/Betameth SodPhos (Celestone Soluspan) 12 mg ONCE ONCE IM ; Start 03/02/19 at 05:00; Stop 03/02/19 at 05:01 Lactated Ringer's 1,000 ml @ 75 mls/hr [id number] IV Last administered on 03/01/19at 12:21; Admin Dose 75 MLS/HR; Start 03/01/19 at 09:30 Allergies: Coded Allergies: No Known Drug Allergies (Verified Allergy, Mild, 03/01/19) Social History Smoking Status: Never smoker Exam/Review of Systems Exam Vitals Intake and Output 02/28/19 02/28/19 03/01/19 1515:00 23:00 07:00 IntakeIntake Total 350 ml BalanceBalance 350 ml Results Result Diagram: 03/01/19 0516 03/01/19 0516 Results 24hrs Laboratory Tests Test 03/01/19 05:11 03/01/19 05:16 5/20/19 10:30 03/01/19 12:20 Uric Acid 4.6 White Blood Count 6.7 # Red Blood Count 3.91 L Hemoglobin 11.1 L Hematocrit 34.7 L Mean Corpuscular 88.7 Volume Mean Corpuscular 28.4 L Hemoglobin Mean Corpuscular 32.0 Hemoglobin Concen t Red Cell 14.4 Distribution Width Platelet Count 158 # Mean Platelet 10.6 H Volume Immature 0.400 Granulocytes % Neutrophils % 68.8 Lymphocytes % 18.0 Monocytes % 10.8 Eosinophils % 1.6 Basophils % 0.4 Nucleated Red 0.0 Blood Cells % Immature 0.030 Granulocytes # Neutrophils # 4.6 Lymphocytes # 1.2 Monocytes # 0.7 Eosinophils # 0.1 Basophils # 0.0 Nucleated Red 0.0 Blood Cells # Prothrombin Time 12.7 Prothrombin Time 1.0 Ratio INR International 0.94 Normalized Ratio Activated 26.9 Partial Thrombopl ast Time Fibrinogen 455.0 Sodium Level 139 Potassium Level 3.6 Chloride Level 108 Carbon Dioxide 27 Level Anion Gap 4 L Blood Urea < 2 L Nitrogen Creatinine 0.46 Est Glomerular > 60 Filtrat Rate mL/min Glucose Level 99 Calcium Level 9.0 Total Bilirubin 0.5 Direct Bilirubin 0.00 Indirect 0.5 Bilirubin Aspartate Amino 20 Transf (AST/SGOT) Alanine 12 L Aminotransferase (ALT/SGPT) Alkaline 95 Phosphatase Total Protein 6.0 L Albumin 3.2 L Globulin 2.80 Albumin/Globulin 1.14 Ratio Urine Color YELLOW Urine Clarity SLIGHTLY CLOUDY A Urine pH 7.0 Urine Specific 1.008 [place] Urine Ketones 1+ H Urine Nitrite NEGATIVE Urine Bilirubin NEGATIVE Urine NEGATIVE Urobilinogen Urine Leukocyte NEGATIVE Esterase Urine Microscopic 0 RBC Urine Microscopic 2 WBC Urine Squamous FEW Epithelial Cells Urine Bacteria FEW A Urine Mucus FEW A Urine Hemoglobin 3+ H Urine Glucose NEGATIVE Urine Total NEGATIVE Protein Urine Opiates Negative Screen Urine Negative Barbiturates Urine Negative Amphetamines Screen Urine Negative Benzodiazepines Screen Urine Cocaine Negative Screen Urine Negative Cannabinoids Magnesium Level 5.2 *H Test 03/01/19 18:16 Magnesium Level 5.8 *H Medications Medication Current Medications Magnesium Sulfate 500 ml @ 50 mls/hr Q10H IV Last administered on 03/01/19at 15:10; Admin Dose 50 MLS/HR; Start 03/01/19 at 05:30 Betamethasone Acet/Betameth SodPhos (Celestone Soluspan) 12 mg ONCE ONCE IM ; Start 03/02/19 at 05:00; Stop 03/02/19 at 05:01 Lactated Ringer's 1,000 ml @ 75 mls/hr [id number] IV Last administered on 03/01/19at 12:21; Admin Dose 75 MLS/HR; Start 03/01/19 at 09:30 NOAM KIRAN MD March 01, 2019 20:10
[2019-03-01] MEDS: DIPHENHYDRAMINE 25 MG CAP PO PRN (23:20)
[2019-03-02] MEDS ORDERED: ACETAMINOPHEN 325 MG TAB ONE (00:55)
[2019-03-02] MEDS ORDERED: ACETAMINOPHEN 325 MG TAB PO PRN (01:00)
[2019-03-02] MEDS ORDERED: AL HYDROX/MG HYDROX/SIMETH 30 ML CUP PO PRN (01:00)
[2019-03-02] MEDS: LACTATED RINGER'S 1,000 ML IV SCH ×2 (04:39→19:25)
[2019-03-02] MEDS ORDERED: BETAMET NA PHOS/AC(6 MG/ML) 2 ML INJ SYG IM ONE (05:00)
[2019-03-02] MEDS: MAGNESIUM SULFATE 20 GM/500 ML 500 ML IV SCH ×2 (10:09→22:47)
--- NOTE | 2019-03-02 10:28 | PN ---
Date/Time of Note Date/Time of Note DATE: 03/02/19 TIME: 10:26 OB Subjective Subjective Subjective doing well vss no bleeding tracing category 1 no bleeding second betamethasone today OB Assessment/Plan Reason for admission: vaginal bleeding Plan: Expectant Management RAYMON MANUEL MD March 02, 2019 10:28
[2019-03-02] MEDS: DIPHENHYDRAMINE 25 MG CAP PO PRN (22:48)
[2019-03-03] MEDS: LACTATED RINGER'S 1,000 ML IV SCH ×3 (01:30→22:42)
[2019-03-03] MEDS: MAGNESIUM SULFATE 20 GM/500 ML 500 ML IV SCH ×2 (08:42→18:11)
[2019-03-03] MEDS: DIPHENHYDRAMINE 25 MG CAP PO PRN (21:08)
[2019-03-04] MEDS: MAGNESIUM SULFATE 20 GM/500 ML 500 ML IV SCH (04:39)
[2019-03-04] MEDS ORDERED: PRENATAL VITAMIN PO SCH (09:00)
--- NOTE | 2019-03-04 11:14 | QN ---
Documentation Comment doing well vss no bleeding tracing category 1 cpm c/s next RAYMON MANUEL MD March 04, 2019 11:14
[2019-03-04] MEDS: DIPHENHYDRAMINE 25 MG CAP PO PRN (20:56)
[2019-03-04] MEDS ORDERED: DOCUSATE SODIUM 100 MG CAP PO SCH (21:00)
[2019-03-05] MEDS ORDERED: OXYTOCIN 30 UNITS/LR 500 ML IV PRN ×2 (07:00→15:00)
[2019-03-05] MEDS ORDERED: CARBOPROST 250 MCG INJ IM PRN ×2 (07:00→15:00)
[2019-03-05] MEDS ORDERED: MISOPROSTOL 200 MCG TAB PR PRN ×2 (07:00→15:00)
[2019-03-05] MEDS ORDERED: METHYLERGONOVINE 0.2 MG INJ IM PRN ×2 (07:00→15:00)
[2019-03-05] MEDS ORDERED: CEFAZOLIN 2 GM/50 ML (PMX) 50 ML IVPB SCH (07:00)
[2019-03-05] MEDS ORDERED: LACTATED RINGER'S 1,000 ML IV SCH ×2 (07:00→14:45)
--- NOTE | 2019-03-05 08:02 | PREAC ---
Date/Time of Note Date/Time of Note DATE: 03/05/19 TIME: 08:00 Anesthesia Eval and Record Evaluation Time Pre-Procedure Interview DATE: 03/05/19 TIME: 08:00 Age 38 Sex female NPO: 8 hrs Preoperative diagnosis IUP, Placenta previa Planned procedure Csection Past Medical History Past Medical History: None Surgery & Anesthesia Issues No known issue Meds Anticoagulation: No Beta Fany within 24 hr: No Reason Beta Fany not given: Pt. not on B-Fany No Active Prescriptions or Reported Meds Current Medications Diphenhydramine HCl (Benadryl) 25 mg Q6H PRN PO ITCHING Last administered on 03/04/19at 20:56; Admin Dose 25 MG; Start 03/01/19 at 23:30 Acetaminophen (Tylenol Tab) 650 mg Q4H PRN PO MILD PAIN(1-3)OR ELEVATED TEMP Last administered on 03/04/19at 20:57; Admin Dose 650 MG; Start 03/02/19 at 01:00 Al Hydrox/Mg Hydrox/Simethicone (Mag-Al Plus) 30 ml Q4H PRN PO GASTROINTESTINAL UPSET; Start 03/02/19 at 01:00 Simethicone (Mylicon) 80 mg Q6H PRN GTB DISTENSION/GAS/BLOATING; Start 03/02/19 at 01:30 Prenat Multivit/ Urologist/Iron/Folic Ac () 1 tab DAILY PO ; Start 03/04/19 at 09:00 Docusate Sodium (Colace) 100 mg BID PO Last administered on 03/04/19at 22:14; Admin Dose 100 MG; Start 03/04/19 at 21:00 Lactated Ringer's 1,000 ml @ 125 mls/hr Q8H IV Last administered on 03/05/19at 07:03; Admin Dose 125 MLS/HR; Start 03/05/19 at 07:00 Cefazolin Sodium/ Dextrose 50 ml @ 100 mls/hr ONCE IVPB ; Start 03/05/19 at 07:00 Oxytocin/Lactated Ringer's 500 ml @ 125 mls/hr POST IV ; Start 03/05/19 at 07:00 Oxytocin/Lactated Ringer's 500 ml @ 0 mls/hr ONCE PRN IV .VAGINAL BLEEDING; Start 03/05/19 at 07:00 Methylergonovine Maleate (Methergine) 0.2 mg ONCE PRN IM .VAGINAL BLEEDING; Start 03/05/19 at 07:00 Carboprost Tromethamine (Hemabate) 250 mcg ONCE PRN IM .VAGINAL BLEEDING; Start 03/05/19 at 07:00 Misoprostol (Cytotec) 1,000 mcg ONCE PRN IA .VAGINAL BLEEDING; Start 03/05/19 at 07:00 Meds reviewed: Yes Allergies Coded Allergies: No Known Drug Allergies (Verified Allergy, Mild, 03/01/19) Allergies Reviewed: Yes Labs/Studies Labs Reviewed: Reviewed by anesthesiologist Result Diagram: 03/05/19 0615 03/01/19 0516 Laboratory Tests 03/05/19 06:15 Blood Bank Test 03/05/19 06:15 Antibody Screen NEGATIVE Blood Product Summary Counts Blood Type B POSITIVE Crossmatch Red Blood Cells Rh Immune Globulin Candidate NO test: Positive Studies: ECG Pre-procedure Exam Last vitals BP:112/56, P:78, Spo2:100%, T:98.8 Airway: Adequate mouth opening, Adequate thyromental dist Mallampati: Mallampati II Teeth: Normal Lung: Normal Heart: Normal ASA Physical Status ASA physical status: 3 Emergency: None Planned Anesthetic Neuraxial: Epidural Planned Pain Management Epidural Pre-operative Attestations Prior to commencing anesthesia and surgery, the patient was re-evaluated, there was verification of: *The patient's identity *The results of appropriate recent lab work and preoperative vital signs *The above evaluation not changing prior to induction *Anesthetic plan, risk benefits, alternative and complications discussed with patient/family; questions answered; patient/family understands, accepts and wishes to proceed. CHARLINE ZELAYA MD March 05, 2019 08:02
[2019-03-05] MEDS ORDERED: morphine SULFATE/PF (10 MG/10 ML) INJ ONE (08:04)
[2019-03-05] MEDS ORDERED: OXYTOCIN 10 UNIT INJ ONE (08:04)
[2019-03-05] MEDS ORDERED: ONDANSETRON 4 MG INJ ONE (08:04)
--- NOTE | 2019-03-05 08:10 | QN ---
Documentation Comment Pt. had another episode of bleeding 500 cc and she is taken back for an em ergency c/s. pt. agrees with the plan and NICU notified. RAYMON MANUEL MD March 05, 2019 08:10
[2019-03-05] MEDS ORDERED: MIDAZOLAM 1 MG/ML 2 ML INJ ONE (08:31)
[2019-03-05] MEDS ORDERED: FENTAnyl 50 MCG/ML VIAL ONE (08:37)
--- NOTE | 2019-03-05 08:50 | OPR ---
Operative Report Planned Procedure Procedure date March 05, 2019 Procedure(s) repeat c/s and btl Performed by see signature line Vice President Client Services: MARIELLA GORE MD Pre-procedure diagnosis previa , bleeding, breech, multiparity [id number] Anesthesia Type: [id number] spinal Post-Procedure Post-procedure diagnosis same as pre op Findings Live Baby [], Apgars [] and [], weight [], position [], [] presentation []cord. Estimated Blood Loss: 600 - 700 mls Specimen(s) none Grafts/Implant(s) none Complication(s) none Pt Condition post procedure: stable Disposition: PACU Procedure Description Under satisfactory [spinal ] anesthesia, the patient was prepped and draped and placed in a supine position, tilted to the left. Pfannenstiel incision was made, carried through the subcutaneous tissue. Bleeders brought under control with electrocautery. Fascia incised to the length of the incision. Rectus muscles from the fascia, divided midline. Peritoneum exposed, entered through a transverse incision. Exploration of abdomen revealed gravid uterus. Bladder flap was developed. Transverse incision was made in the lower segment of the uterus. Amniotic sac ruptured. clear [] amniotic fluid noted. [] Nasal oropharyngeal suction was performed. The baby was handed to the team for immediate attention. The placenta was delivered manually intact. Uterine cavity was cleaned with wet sponge and drainage established. Uterus closed in 2 layers using one monocryl [] in continuous fashion. Right and Left fallopian tube were tied separately with o plain tie and cut with metzembum . Peritoneal cavity irrigated with warm saline. Sponge, needle and instrument count reported to be correct. . Fascia closed with [one monocryl ], and skin closed with gwendolyn. Estimated blood loss [700]mL. RAYMON MANUEL MD March 05, 2019 08:50
--- NOTE | 2019-03-05 09:11 | PAC ---
Date/Time of Note Date/Time of Note DATE: 03/05/19 TIME: 09:10 Post-Anesthesia Notes Post-Anesthesia Note Activity: WNL Respiratory function: WNL Cardiovascular function: WNL Mental status: Baseline Pain reasonably controlled: Yes Hydration appropriate: Yes Nausea/Vomiting absent: Yes Comments BP:125/67, P:78, Spo2;100%, T:98,8 CHARLINE ZELAYA MD March 05, 2019 09:11
[2019-03-05] MEDS: KETOROLAC 30 MG INJ IV PRN ×3 (09:27→23:39)
[2019-03-05] MEDS ORDERED: morphine 2 MG INJ IV PRN (09:30)
[2019-03-05] MEDS ORDERED: ONDANSETRON 4 MG INJ IV PRN (09:30)
[2019-03-05] MEDS ORDERED: NALOXONE (0.4 MG/ML) INJ IV PRN (09:30)
[2019-03-05] MEDS: OXYTOCIN 30 UNITS/LR 500 ML IV SCH ×2 (09:34→14:06)
[2019-03-05] MEDS: DIPHENHYDRAMINE 50 MG INJ IV PRN ×2 (10:51→23:06)
[2019-03-05 14:20] VITALS: BP 119/66; PULSE 59; RESP 17
[2019-03-05] MEDS ORDERED: OXYTOCIN 30 UNITS/LR 500 ML IV SCH (14:45)
[2019-03-05] MEDS ORDERED: NACL 0.9% 3 ML SYG IV SCH (15:00)
[2019-03-05] MEDS ORDERED: LANOLIN HPA 1 PKT TOP PRN (15:00)
[2019-03-05] MEDS ORDERED: NA PHOSPHATE/BIPHOS 133 ML ENEMA PR PRN (15:00)
[2019-03-05 15:35] VITALS: BP 120/61; PULSE 61; RESP 16
[2019-03-05 19:45] VITALS: BP 114/55; PULSE 77; RESP 18
[2019-03-06 00:04] VITALS: BP 115/72; PULSE 75; RESP 18
[2019-03-06] MEDS: LACTATED RINGER'S 1,000 ML IV SCH ×2 (03:23→11:30)
[2019-03-06 04:10] VITALS: BP 108/56; PULSE 61; RESP 18
[2019-03-06 08:00] VITALS: BP 116/68; PULSE 71; RESP 16
[2019-03-06] MEDS: HYDROCODONE/APAP (5/325) TAB PO PRN ×3 (08:21→17:59)
[2019-03-06] MEDS: IBUPROFEN 800 MG TAB PO SCH ×2 (14:11→21:56)
[2019-03-06 16:00] VITALS: BP 117/71; PULSE 81; RESP 20
--- NOTE | 2019-03-06 17:15 | QN ---
Documentation Comment Postop day #1 Status post and BTL Patient stable and afebrile Vital signs stable VS - Last 72 Hours, by Label Date Temp Pulse Resp B/P (MAP) Pulse Ox O2 O2 Flow FiO2 Time Delivery Rate 03/06/19 98.1 81 20 117/71 16:00 (86) 03/06/19 99.3 71 16 116/68 Room Air 08:00 (84) 03/06/19 98.1 61 18 108/56 100 Room Air 04:10 (73) 03/06/19 98.2 75 18 115/72 98 Room Air 00:04 (86) 03/05/19 98.0 77 18 114/55 98 Room Air 19:45 (74) 03/05/19 98.1 61 16 120/61 100 Room Air 15:35 (80) 03/05/19 98.3 59 17 119/66 100 Room Air 14:20 (83) Hematology - 72 Hrs Test 03/05/19 06:15 03/06/19 07:03 Hematocrit 32.9 % (37.0-47.0) L 27.8 % (37.0-47.0) L Hemoglobin 10.4 g/dl (12.0-16.0) L 8.9 g/dl (12.0-16.0) L Mean Corpuscular 28.6 pg (29.0-33.0) L 28.8 pg (29.0-33.0) L Hemoglobin Mean Corpuscular 31.6 g/dl (32.0-37.0) L 32.0 g/dl (32.0-37.0) Hemoglobin Concent Mean Corpuscular Volume 90.4 fl (82.0-101.0) 90.0 fl (82.0-101.0) Mean Platelet Volume 10.6 fl (7.4-10.4) H 11.1 fl (7.4-10.4) H Platelet Count 161 10^3/UL (140-415) 166 10^3/UL (140-415) Red Blood Count 3.64 10^6/ul (4.20-5.40) 3.09 10^6/ul (4.20-5.40) L L Red Cell Distribution 14.4 % (11.5-14.5) 14.1 % (11.5-14.5) Width White Blood Count 8.4 10^3/ul (4.8-10.8) # 11.1 10^3/ul (4.8-10.8) #H Chemistry Test 03/03/19 20:47 03/03/19 23:57 03/04/19 06:16 Magnesium Level 5.3 mg/dl (1.7-2.5) 5.4 mg/dl (1.7-2.5) 5.3 mg/dl (1.7-2.5) *H *H *H Abdomen soft, fundus firm Incision clean,dry,intact Extremities nontender Assessment and plan Patient stable and doing well Encouraged to ambulate Continue with routine postop care GENI THOMAS MD March 06, 2019 17:15
[2019-03-06 19:45] VITALS: BP 113/86; PULSE 85; RESP 18
[2019-03-06] MEDS: DIPHENHYDRAMINE 50 MG CAP PO PRN (21:01)
[2019-03-06] MEDS ORDERED: NALBUPHINE HCL (10 MG/1 ML) INJ IV ONE (21:30)
[2019-03-07 03:36] VITALS: BP 114/69; PULSE 73; RESP 18
[2019-03-07] MEDS: HYDROCODONE/APAP (5/325) TAB PO PRN ×2 (03:36→13:08)
[2019-03-07] MEDS: IBUPROFEN 800 MG TAB PO SCH ×3 (06:28→22:09)
[2019-03-07 08:30] VITALS: BP 108/70; PULSE 87; RESP 16
--- NOTE | 2019-03-07 13:37 | QN ---
Documentation Comment POD #2 Pt feels good and has good pain control. Is mostly bottlefeeding per her choice but will do 20% .+flatus. T=98.2 BP 114/69 Fundus firm. Incision is clean, dry, and intact. Lochia minimal. Ext 1+ edema. WBC 11.1 hgb 8.9 Plts 166K. P: Continue care and plan d/c tomorrow. CANDACE PITT MD March 07, 2019 13:37
[2019-03-07 15:58] VITALS: BP 102/64; PULSE 85; RESP 20
[2019-03-07 16:25] VITALS: RESP 18
[2019-03-07] MEDS: DIPHENHYDRAMINE 50 MG CAP PO PRN (19:17)
[2019-03-07 20:00] VITALS: BP 126/71; PULSE 79; RESP 20
[2019-03-08 04:00] VITALS: BP 128/76; PULSE 80; RESP 17
[2019-03-08] MEDS: IBUPROFEN 800 MG TAB PO SCH ×2 (06:29→14:00)
[2019-03-08 08:25] VITALS: BP 101/63; PULSE 73; RESP 17
[2019-03-08] MEDS ORDERED: DIPHTH/TET/ACEL PERTUSS (ADULT) 0.5 ML VIAL IM* ONE (09:00)
[2019-03-08] MEDS ORDERED: MEASLES,MUMPS,RUBELLA VACCINE INJ SC* ONE (09:00)
[2019-03-08] MEDS ORDERED: BISACODYL 10 MG SUPP PR ONE (09:30)
--- NOTE | 2019-03-08 09:42 | DS ---
Date/Time of Note Date/Time of Note DATE: 03/08/19 TIME: 09:40 Obstetrical Discharge Record Final Diagnosis Final Diagnosis: Term delivered Other Final Diagnosis Postop day #3 Status post and BTL Patient stable and afebrile Patient is ambulating, tolerating regular diet, voiding and positive flatus Vital signs stable Hematology - 72 Hrs Test 03/06/19 07:03 Hematocrit 27.8 % (37.0-47.0) L Hemoglobin 8.9 g/dl (12.0-16.0) L Mean Corpuscular Hemoglobin 28.8 pg (29.0-33.0) L Mean Corpuscular Hemoglobin Concent 32.0 g/dl (32.0-37.0) Mean Corpuscular Volume 90.0 fl (82.0-101.0) Mean Platelet Volume 11.1 fl (7.4-10.4) H Platelet Count 166 10^3/UL (140-415) Red Blood Count 3.09 10^6/ul (4.20-5.40) L Red Cell Distribution Width 14.1 % (11.5-14.5) White Blood Count 11.1 10^3/ul (4.8-10.8) #H Abdomen soft, fundus firm Incision clean, dry, intact Extremities nontender Assessment and plan Patient stable and doing well Plan to discharge home Patient instructed to follow-up with [facility] in 2 and 6 weeks Section Section: Primary Condition on Discharge Physical Assessment Last Vitals: VS - Last 72 Hours, by Label Date Temp Pulse Resp B/P (MAP) Pulse Ox O2 O2 Flow FiO2 Time Delivery Rate 03/08/19 98.2 80 17 128/76 Room Air 04:00 (93) 03/07/19 98.4 79 20 126/71 Room Air 20:00 (89) 03/07/19 18 Room Air 16:25 03/07/19 98.8 85 20 102/64 15:58 (77) 03/07/19 98.2 87 16 108/70 Room Air 08:30 (83) 03/07/19 98.2 73 18 114/69 Room Air 03:36 (84) 03/06/19 98.2 85 18 113/86 Room Air 19:45 (95) 03/06/19 98.1 81 20 117/71 16:00 (86) 03/06/19 99.3 71 16 116/68 Room Air 08:00 (84) 03/06/19 98.1 61 18 108/56 100 Room Air 04:10 (73) 03/06/19 98.2 75 18 115/72 98 Room Air 00:04 (86) 03/05/19 98.0 77 18 114/55 98 Room Air 19:45 (74) 03/05/19 98.1 61 16 120/61 100 Room Air 15:35 (80) 03/05/19 98.3 59 17 119/66 100 Room Air 14:20 (83) Voiding: Yes Bowel Movement: Yes Breast: Soft, non-tender Fundus: Firm Calf Tenderness: No Patient Condition: Good Copies To: CC: RAYMON MANUEL MD ; GENI THOMAS MD March 08, 2019 09:42
[2019-03-08] MEDS: HYDROCODONE/APAP (5/325) TAB PO PRN (13:10)
--- NOTE | 2019-03-09 16:30 | DELSUM ---
Delivery Summary A-C Datetime Report Generated by CPN: 03/09/2019 16:29 DELIVERY PERSONNEL Java Lead Developer: Hayder, Valorie MATERNAL INFORMATION Delivery Anesthesia: Spinal Medications in Delivery: LR with 30 Units Pitocin Delivery QBL (ml): 600 Placenta Cultured: Yes Maternal Complications: Placenta Previa Other Maternal Complications: Complete Placenta Previa LABOR SUMMARY EDC: 04/08/2019 00:00 No. Babies in Womb: 1 Attempted: No Labor Anesthesia: None LABOR INFORMATION Reason for Induction: Not Applicable Oxytocin: N/A Group B Beta Strep: Not Done Antibiotics # of Doses: Ancef 2 grams x1 Antibiotics Time of Last Dose: 03/05/2019 08:15 Steroids Given: Full Course Reason Steroids Not Administered: Maternal Indication MEMBRANES Membranes Rupture Method: Artificial Rupture of Membranes: 03/05/2019 08:29 Length of Rupture (hr): 0.00 Amniotic Fluid Color: Bloody Amniotic Fluid Amount: Moderate Amniotic Fluid Odor: None STAGES OF LABOR Stage 3 hr: 0 Stage 3 min: 1 CSECTION DELIVERY Primary Indication: Other Other Primary Indication: Complete Placenta Previa Secondary Indication: N/A CSection Urgency: Non Elective CSection Incidence: N/A Labor: N/A Elective: N/A CSection Incision: Lower Uterine Transverse Sterilization Procedure: [place] BABY A INFORMATION Infant Delivery Date/Time: 03/05/2019 08:29 Method of Delivery: Born in Route : No : N/A Forceps: N/A Vacuum Extraction: N/A Shoulder Dystocia : N/A SHOULDER DYSTOCIA BABY A Delivery Date/Time: 03/05/2019 08:29 PRESENTATION/POSITION BABY A Presentation: Breech Cephalic Presentation: N/A Breech Presentation: [place] PLACENTA INFORMATION BABY A Placenta Delivery Time : 03/05/2019 08:30 Placenta Method of Delivery: Manual Removal Placenta Status: Delivered SCORES BABY A Heart Rate 1 min: >100 bpm Resp Effort 1 min: Good Cry Reflex Irritability 1 min: Cough/Sneeze/Pulls Away Muscle Tone 1 min: Active Motion Color 1 min: Body [place], Extremit Blue Resuscitation Effort 1 min: Tactile Stimulation SCORE 1 MIN: 9 Heart Rate 5 min: >100 bpm Resp Effort 5 min: Good Cry Reflex Irritability 5 min: Cough/Sneeze/Pulls Away Muscle Tone 5 min: Active Motion Color 5 min: Body [place], Extremit Blue Resuscitation Effort 5 min: Tactile Stimulation SCORE 5 MIN: 9 INFORMATION BABY A Gestational Age at Delivery: 35.1 Gestational Status: Late - 34- 36.6 Weeks Infant Outcome : Liveborn Condition : Stable Sex: Female IDENTIFICATION/MEDS BABY A ID Band Number: [id number] ID Band Location: Right Leg; Left Arm Sensor Applied: Yes Sensor Number: [id number] Sensor Location : Cord Clamp Vitamin K Given : Not Given Erythromycin Given: Not Given WEIGHT/LENGTH BABY A Infant Birthweight (gm): 2555 Weight (lb): 5 Infant Weight (oz): 10 Length (in): 18.75 Infant Length (cm): 47.63 CORD INFORMATION BABY A No. Cord Vessels: 3 Nuchal Cord : N/A True Knot: 1 Cord Blood Taken: Yes Infant Suction: Mouth; Nose ASSESSMENT BABY A Complications: None Physical Findings at Delivery: Within Normal Limits Respirations: Appears Normal [place] Head/ALS Called : Yes Infant Care By: Nany BARBOZA/Jose Daniel RT Transferred To: Remains with Mother
== END 2019-03-08 16:29 | disposition home or self-care (01) | DRG 783 ==
LOC: OBT 04:27 → L-D 04:27 → OBT 04:37 → L-D 07:18 → PP1 03-05 14:26
PROVIDERS: ADMIT Obstetrics & Gynecology; ATTEND Obstetrics & Gynecology
PROC: 10D00Z1 Extraction of Products of Conception, Low, Open Approach (ICD-10-PCS; principal; 2019-03-05)
PROC: 0UL70ZZ Occlusion of Bilateral Fallopian Tubes, Open Approach (ICD-10-PCS; 2019-03-05)
DX: O65.5 Obstructed labor due to abnormality of maternal pelvic organs (principal); O60.13X0 Preterm labor second trimester with preterm delivery third trimester, not applicable or unspecified; O34.211 Maternal care for low transverse scar from previous cesarean delivery; Z3A.34 34 weeks gestation of pregnancy; O32.1XX0 Maternal care for breech presentation, not applicable or unspecified; Z37.0 Single live birth; Z30.2 Encounter for sterilization
CPT/HCPCS: 36415; 76815; 76818; 80053; 80307; 81001; 83735; 84560; 85025; 85384; 85610; 85730; 86592; 86850; 86900; 86901; 86920; 87086; 87340; 88302; 88307; 90715; 99464; G0463; J0690; J0702; J1200; J1885; J2250; J2270; J2274; J2300; J2405; J2590; J3010; J3475; J7120